=== PATIENT | female | born 1995 | race Caucasian/White ===

== ENCOUNTER 2017-03-07 22:30 | Inpatient (IN) | payer MEDICAID ==
[~2017-03-07] VITALS: Ht 165.1 cm; Wt 106.2 kg
[2017-03-07 22:41] VITALS: BP 132/76; PULSE 110; RESP 18
[2017-03-07 22:43] VITALS: Ht 165.1 cm; Wt 106.2 kg
[2017-03-07] MEDS ORDERED: PRENAT PO (22:46)
[2017-03-07] MEDS ORDERED: FOLI20CA PO (22:46)
[2017-03-07] MEDS ORDERED: LIDOCAINE 1% (MPF) 30 ML INJ INJ PRN (23:30)
[2017-03-07] MEDS ORDERED: METHYLERGONOVINE 0.2 MG INJ IM PRN (23:30)
[2017-03-07] MEDS ORDERED: OXYTOCIN 30 UNITS/LR 500 ML IV SCH ×2 (23:30)
[2017-03-07] MEDS ORDERED: OXYTOCIN 30 UNITS/LR 500 ML IV PRN (23:30)
[2017-03-07] MEDS ORDERED: CARBOPROST 250 MCG INJ IM PRN (23:30)
[2017-03-07] MEDS ORDERED: MISOPROSTOL 200 MCG TAB PR PRN (23:30)
--- NOTE | 2017-03-07 23:55 | TRIAGE ---
OB Triage Datetime Report Generated by CPN: 03/07/2017 23:54 Datetime: 03/07/2017 23:40 Stage of : Labor Datetime: 03/07/2017 23:06 Temperature Route: Oral Datetime: 03/07/2017 23:04 Vaginal Exam Dilatation (cms): 0.5 Effacement (%): 30 Station: -2 Exam By: DGS RN Vaginal Bleeding: None Cervix, Consistency: Moderate Cervix, Position: Posterior Datetime: 03/07/2017 23:02 Contraction Comments: toco monitor changed Datetime: 03/07/2017 22:55 Labor Evaluation Monitor Mode: Palpation Quality: Mild Resting Tone [place]: Relaxed Datetime: 03/07/2017 22:50 Membrane Status: Intact Datetime: 03/07/2017 22:37 EGA: 38.4 Datetime: 03/07/2017 22:35 Stage of : OB Triage Assessment Type: Triage Maternal Assessment Level of Consciousness: Fully Conscious DTR's/Clonus: DTRs 2+; No Clonus Headache: Denies Blurred Vision: No Respiratory Effort: Unlabored; Regular Rhythm; Equal Expansion Breath Sounds, Left: Clear and Equal Breath Sounds, Right: Clear and Equal Nausea/Vomiting: Denies RUQ Epigastric Pain: Denies Lower Extremities Edema: Bilateral Lower Extremities Degree: 1+ Upper Extremities Edema: None Degree: None Facial Edema: None Temperature Route: Oral Fall Risk Assessment History of Falling: (0) No Secondary Diagnosis: (0) No Ambulatory Aid: (0) Bedrest/Nurse Assist IV Therapy: (0) No Gait: (0) Normal/Bedrest/Immobile Mental Status: (0) Oriented to Own Ability Fall Score: 0 Fall Risk Score Definition: No Risk: No action required Pain Assessment Pain Scale: 4 Pain Presence: Intermittent Pain Type: Cramping Pain Location: Abdomen; Back Pain Goal: 4 Pain Relief Measures: Comfort Measures Datetime: 03/07/2017 22:20 Stage of : OB Triage Datetime: 03/07/2017 22:15 Time of Arrival: 03/07/2017 22:15 Arrived By: Ambulatory Arrived From: Home Chief Complaint: C/O H/A, UC'S, BACK PAIN, FEVER, DECREASED FM, PT STATES SHE STARTED HAVING OCCAS IONAL COUGH W/ PHLEGM THIS AM, DENIES COLD _ RUNNY NOSE Movement: Decreased Contractions: Irregular Time Contractions Began: 03/07/2017 22:00 Contractions: "CONSTANT" Rupture of Membranes: Denies Vaginal Bleeding: None Vaginal Discharge: Present Recent Sexual Intercouse: Denies Abdominal Trauma: Not Applicable Patient Complaints: Contractions; Back Pain; Headache; Fever; Cough Time Provider Notified: 03/07/2017 23:10 Provider Notified: NGOC Initial Plan: GEORGE TRAVIS, MARIAMA
[2017-03-08] MEDS: LACTATED RINGER'S 1,000 ML IV SCH ×2 (00:14→07:22)
[2017-03-08 00:43] LABS: BASOPHILS % 0.2 % (0.0-2.0); EOSINOPHILS # 0.1 10^3/ul (0.0-0.5); EOSINOPHILS % 0.8 % (0.0-7.0); HEMATOCRIT 34.4 % (37.0-47.0); HEMOGLOBIN 10.9 g/dl (12.0-16.0); LYMPHOCYTES # 1.8 10^3/ul (0.8-2.9); MEAN CORPUSCULAR HEMOGLOBIN 25.6 pg (29.0-33.0); MEAN CORPUSCULAR HGB CONC 31.7 g/dl (32.0-37.0); MEAN CORPUSCULAR VOLUME 80.9 fl (72.0-104.0); MEAN PLATELET VOLUME 11.3 fl (7.4-10.4); MONOCYTE # 0.9 10^3/ul (0.3-0.9); MONOCYTES % 6.9 % (0.0-13.0); NEUTROPHIL # 10.1 10^3/ul (1.6-7.5); PLATELET COUNT 317 10^3/UL (140-415); RED BLOOD COUNT 4.25 10^6/ul (4.20-5.40); RED CELL DISTRIBUTION WIDTH 15.4 % (11.5-14.5); WHITE BLOOD COUNT 13.1 10^3/ul (4.8-10.8)
[2017-03-08 01:00] LABS: INR 0.96; PROTIME 12.8 Sec (12.2-14.2)
[2017-03-08 01:01] LABS: PARTIAL THROMBOPLASTIN TIME 32.7 Sec (25.0-35.0)
--- NOTE | 2017-03-08 01:15 | RADRPT ---
AMENDMENT: 03/08/2017 1:24:31 AM Tomasa Hollowya M.D Clinical indication: Decreased movement and pain. PROCEDURE: US OB Limited for Estimated Weight. CLINICAL INDICATION: 21-year-old female. . Estimate weight TECHNIQUE: Multiple sonographic images of the pelvis were obtained. Transabdominal imaging only w as performed. The images were reviewed on a PACS workstation. Image quality: Satisfactory. COMPARISON: No prior studies are available for comparison. FINDINGS: [place] : Number of fetuses: 1 GENERAL EVALUATION: Cardiac activity: Present. FHR 144 bpm Presentation: Cephalic. Placenta: Placenta site: Anterior. No evidence of placental previa. Calcifications and indentations in keeping with grade 2 placenta. Cervix (transabdominal): Not evaluated. DATING: EGA by dates: 38 weeks 4 days BRENDA by dates: March 17, 2017 BIOMETRY: BPD = 9.4 cm , 38 weeks 30 days (74th percentile) HC = 33.7 cm , 38 weeks 5 days (37th percentile) AC = 34.7 cm , 38 weeks 4 days (70 percentile) FL = 7.6 cm , 38 weeks 4 days (57th percentile) Composite sonographic age: 38 weeks 4 days plus or minus 3 weeks Estimated due date by ultrasound measurements: March 18, 2017 EFW 3532 grams, 66 percentile ANATOMY: Not evaluated. IMPRESSION: 1. Single living fetus in cephalic presentation. 2. Estimated gestational age by today's ultrasound is concordant with the expected gestational age b y dates. 2. Estimated weight is 3532 grams that is at the 66th percentile for gestational age. 4. Anterior grade II placenta. RPTAT: HCTS Physician Maddie Date Time Electronically viewed and signed by Physician Maddie on 03/08/2017 01:25 CS/
--- NOTE | 2017-03-08 01:17 | RADRPT ---
PROCEDURE: OB ultrasound for biophysical profile CLINICAL INDICATION: 21-year-old female. Decreased movement and pain.. TECHNIQUE: Multiple sonographic images of the pelvis were obtained. Transabdominal view of the gr avid uterus are available for review. The images were reviewed on a PACS workstation. COMPARISON: None FINDINGS: breathing movement = 2/2 tone = 2/2 motion = 2/2 Amniotic fluid = 2/2 CUATE = 16.5 cm Single live intrauterine in cephalic presentation with cardiac activity (139 bpm). Anterior placenta, grade 2. IMPRESSION: 1. Single viable intrauterine gestation. 2. Biophysical profile = 8/8. 3. CUATE = 16.5 cm. RPTAT: HCTS Physician Maddie Date Time Electronically viewed and signed by Physician Maddie on 03/08/2017 01:17 CS/
[2017-03-08 02:56] LABS: ADD UMIC NO; UR ASCORBIC ACID NEGATIVE (NEGATIVE); UR BACTERIA FEW /HPF (NONE SEEN); UR BILIRUBIN (Dip) NEGATIVE (NEGATIVE); UR BLOOD (Dip) NEGATIVE (NEGATIVE); UR BUDDING YEAST FEW /HPF (NONE SEEN); UR CLARITY SLIGHTLY CLOUDY (CLEAR); UR COLOR YELLOW (YELLOW); UR GLUCOSE (Dip) NEGATIVE (NEGATIVE); UR KETONES (Dip) NEGATIVE (NEGATIVE); UR LEUKOCYTE ESTERASE (Dip) NEGATIVE Leu/ul (NEGATIVE); UR NITRITE (Dip) NEGATIVE (NEGATIVE); UR RBC 0 /HPF (0-5); UR SPECIFIC GRAVITY (Dip) 1.016 (1.003-1.030); UR TOTAL PROTEIN (Dip) NEGATIVE (NEGATIVE); UR UROBILINOGEN (Dip) NEGATIVE (NEGATIVE)
--- NOTE | 2017-03-08 11:55 | RADRPT ---
PROCEDURE: Obstetrical ultrasound for biophysical profile CLINICAL INDICATION: Biophysical profile. . TECHNIQUE: Obstetrical ultrasound of the uterus for biophysical profile. Transabdominal views are obtained. COMPARISON: 03/08/2017 FINDINGS: Single intrauterine gestation. Presentation: Cephalic. Placenta: Anterior. No evidence of placental abruption. No evidence of placenta previa. breathing movement = 2/2 tone = 2/2 motion = 2/2 CUATE = 2/2 CUATE = 13.4 cm heart rate: 146 beats per minute IMPRESSION: Single intrauterine gestation. Biophysical profile 03/05 RPTAT: AADD .Antoine Cabral MD, MD Date Time Electronically viewed and signed by .Antoine Cabral MD, on 03/08/2017 11:54 .B/
--- NOTE | 2017-03-20 12:05 | PN ---
Triage Information Date/Time Mar 07, 2017 at 23:45 Reason for visit: Uterine contractions Weeks of Gestation 38+ /Para ... Diabetes: none Diabetes management: diet controlled Objective Heart Rate: 140's Contractions: >10 Minutes Apart Disposition: Discharge Assessment/Plan The Oncall laborist saw the patient on that day and discharged the patient I am writing the note as per Medical records request. Patient had no cervical change and reaassring tracing and got discharged LEVAR GROSSMAN M.D. Mar 20, 2017 12:05
== END 2017-03-08 12:00 | disposition home or self-care (01) | DRG 780 ==
LOC: OBT 22:30 → L-D 22:31 → OBT 23:45
PROVIDERS: ADMIT Obstetrics & Gynecology; ATTEND Obstetrics & Gynecology
DX: O47.1 False labor at or after 37 completed weeks of gestation (principal); Z3A.38 38 weeks gestation of pregnancy
CPT/HCPCS: 76816; 76818; 81001; 81003; 85025; 85610; 85730; 86592; 86900; 86901; 87086; G0463; J7120

== ENCOUNTER 2017-03-10 08:39 | Inpatient (IN) | END 2017-03-13 15:26 | disposition home or self-care (01) | DRG 775 | DX: O69.81X0 Labor and delivery complicated by cord around neck, without compression, not applicable or unspecified (principal); O76 Abnormality in fetal heart rate and rhythm complicating labor and delivery; Z3A.39 39 weeks gestation of pregnancy; Z37.0 Single live birth ==